=== PATIENT | female | born 1980 ===

== ENCOUNTER 2020-09-06 08:53 | Day surgery (SDC) | payer OTHER | END 2020-09-06 14:10 | disposition home or self-care (01) | LOC: AMB-ENDOS 08:53 | PROVIDERS: ATTEND Colon & Rectal Surgery | DX: K62.89 Other specified diseases of anus and rectum (principal); K64.2 Third degree hemorrhoids; Z20.822 Contact with and (suspected) exposure to COVID-19 ==